=== PATIENT | male | born 1970 | race Caucasian/White ===

== ENCOUNTER 2024-11-05 00:34 | Day surgery (SDC) | payer BC, SELFPAY ==
[2024-10-21 11:11] VITALS: BMI 28.2
[2024-11-05 06:31] VITALS: BP 124/83; PULSE 79; RESP 18; TEMP 36.1; O2SAT 100
--- NOTE | 2024-11-05 06:33 | WPDANESEPPF ---
Anes - Initial Pre Proc Eval Procedure: Operation Date: 11/05/24 07:30 Proposed Procedures p Screening Colonoscopy - Luis Paulino MD Date/Time: 11/05/24 06:33 Surgeon: Luis Paulino MD Pre Op Diagnosis: screening malignant neoplasm of colon Patient Data Age: 54 Gender: M Height: 1.7 m Weight: 86.1 kg Last Vital Signs Temp 36.1 C L 11/05/24 06:31 Pulse 79 11/05/24 06:31 Resp 18 11/05/24 06:31 BP 124/83 11/05/24 06:31 Pulse Ox 100 11/05/24 06:31 O2 Del Method Room Air 11/05/24 06:31 Allergies Allergy/AdvReac Type Severity Reaction Status Date / Time No Known Allergies Allergy Mild Verified 11/05/24 06:24 Home Medications ?Medication ?Instructions ?Recorded ?Confirmed ?Type omeprazole magnesium 20 mg 20 mg PO DAILY 10/28/19 11/05/24 History tablet,delayed release (Prilosec OTC) atorvastatin 10 mg tablet See Rx Instructions .Route 04/15/24 11/05/24 Rx .COMPLEX #90 tabs lisinopril 20 See Rx Instructions .Route 06/02/24 11/05/24 Rx mg-hydrochlorothiazide 25 mg tablet .COMPLEX #90 tabs Patient hx anesthesia problems: none Family hx anesthesia problems: none Results Review: All pre-operative results and documents have been reviewed as part of the pre-operative evaluation. ON LICENSE OF [facility] Past Medical History Medical History GERD (gastroesophageal reflux disease) Pure hypercholesterolemia Essential (primary) hypertension Family History Family History Father Family history of suicide Hypertension Mother Depression Family history of malignant neoplasm Other Family history of allergic disorder Social History Social History Social History: Single Smoking status: Former smoker Tobacco type: e-cigarettes/vaping Second hand tobacco smoke exposure: No Smoking end date: 10/15/13 Alcohol intake: current Alcohol use details: Socially Substance use: never Substance use type: does not use Living arrangements: alone Occupation/Education: occupation Gender identity (if verbalized by the patient): Male Sexual Orientation (if Verbalized by the Patient): Straight or Heterosexual Spiritual care concerns: No Anes - Eval Final PreProcedure Day of Procedure 11/05/24 06:33 Patient weight: overweight Heart: regular rate and rhythm Lungs: clear to auscultation Airway: Mallampati scale class II Neurological: alert and oriented Last oral intake: >/= 8 hours ASA classification: III Emergent: no Anesthetic plan: proceed Anesthesia type and monitoring: general GIVS and standard monitoring Results Review: All pre-operative results and documents have been reviewed as part of the pre-operative evaluation. Informed Consent: The patient's anesthetic plan and its attendant risks and benefits were discussed with the patient/family/POA. Questions were solicited and answers provided to the satisfaction of the patient/family/POA.
[2024-11-05] MEDS: LACTATED RINGERS 1,000 ML 150 ML IV CONT (06:38)
--- NOTE | 2024-11-05 07:13 | PM.IMHP ---
H&P: HPI History of Present Illness Date/Time: 11/05/24 07:13 Chief Complaint: Screening colonoscopy Narrative: This is the patient's first colonoscopy. There are no GI symptoms and there is no family history of colorectal cancer. Review of Systems Review of Systems: All systems reviewed & are unremarkable except as noted in HPI and below [facility] Past Medical History Medical History GERD (gastroesophageal reflux disease) Pure hypercholesterolemia Essential (primary) hypertension Family History Family History Father Family history of suicide Hypertension Mother Depression Family history of malignant neoplasm Other Family history of allergic disorder Social History Social History Social History: Single Smoking status: Former smoker Tobacco type: e-cigarettes/vaping Second hand tobacco smoke exposure: No Smoking end date: 10/15/13 Alcohol intake: current Alcohol use details: Socially Substance use: never Substance use type: does not use Living arrangements: alone Occupation/Education: occupation Gender identity (if verbalized by the patient): Male Sexual Orientation (if Verbalized by the Patient): Straight or Heterosexual Spiritual care concerns: No Meds Home Medications and Allergies Home Medications ?Medication ?Instructions ?Recorded ?Confirmed ?Type omeprazole magnesium 20 mg 20 mg PO DAILY 10/28/19 11/05/24 History tablet,delayed release (Prilosec OTC) atorvastatin 10 mg tablet See Rx Instructions .Route 04/15/24 11/05/24 Rx .COMPLEX #90 tabs lisinopril 20 See Rx Instructions .Route 06/02/24 11/05/24 Rx mg-hydrochlorothiazide 25 mg tablet .COMPLEX #90 tabs Allergies Allergy/AdvReac Type Severity Reaction Status Date / Time No Known Allergies Allergy Mild Verified 11/05/24 06:24 Vital Signs Vital Signs - 24 hr 11/05/24 06:31 Temperature 97 F L Pulse Rate 79 Respiratory Rate 18 Blood Pressure 124/83 Pulse Oximetry 100 Oxygen Delivery Room Air Exam Const: General: cooperative and healthy appearing Resp: Effort & Inspection: normal respiratory effort and able to speak in complete sentences Auscultation: clear to auscultation bilaterally Cardio: Rate: regular rate Rhythm: regular rhythm GI: Inspection: normal to inspection GI Palp: No No hepatosplenomegaly present Auscultation: normal bowel sounds Rectal Exam: deferred Skin: General skin exam: normal color Psych: Appearance: grossly normal Mental Status: mental status grossly normal Assessment and Plan Assessment and plan (1) Encounter for screening colonoscopy: Code(s): Z12.11 - Encounter for screening for malignant neoplasm of colon Status: Acute Assessment and Plan: The patient is deemed a good candidate for the procedure. Consent signed. Will proceed.
[2024-11-05] MEDS: SIMETHICONE ORAL SUSPENSION 20 MG/0.3 ML 30 ML BOTTLE 0.6 ML IRRIGATION (07:42)
[2024-11-05 08:01] VITALS: BP 101/67; PULSE 74; RESP 16; O2SAT 99
[2024-11-05 08:11] VITALS: BP 119/90; PULSE 70; RESP 20; O2SAT 100
[2024-11-05 08:21] VITALS: BP 121/72; PULSE 69; RESP 20; O2SAT 100
--- NOTE | 2024-11-05 08:32 | SUR.PHASEII ---
Pt did not want to wait to speak to MD before discharge.
== END 2024-11-05 08:32 | disposition home or self-care (01) ==
PROVIDERS: PCP Family Medicine; Referring Provider Family Medicine; Visit Provider Internal Medicine Gastroenterology
PROC: 0DJD8ZZ Inspection of Lower Intestinal Tract, Via Natural or Artificial Opening Endoscopic (ICD-10-PCS; CPT 45378; principal; 2024-11-05 07:30)
DX: Z12.11 Encounter for screening for malignant neoplasm of colon (principal); D12.8 Benign neoplasm of rectum; K63.5 Polyp of colon; K57.30 Diverticulosis of large intestine without perforation or abscess without bleeding; I10 Essential (primary) hypertension; E78.00 Pure hypercholesterolemia, unspecified; K21.9 Gastro-esophageal reflux disease without esophagitis; Z87.891 Personal history of nicotine dependence; Z80.9 Family history of malignant neoplasm, unspecified
CPT/HCPCS: 45385; 88305; J2003; J2704; J7120